=== PATIENT | female | born 1965 | race Caucasian/White ===

== ENCOUNTER 2021-12-02 08:45 | Inpatient (IN) ==
[2021-12-02] MEDS ORDERED: Iopamidol - 370 500 ML MLS IVP ONE ×2 (09:01→09:12)
[2021-12-02 09:24] LABS: Basophils % 0.2 %; Red Blood Count 3.41 M/mcL (3.82-4.97)
[2021-12-02 09:26] LABS: Basophils # 0.1 K/mcL (0.0-0.2); Hematocrit 22.5 % (35.3-44.9); Hemoglobin 6.6 g/dL (11.5-15.4); Immature Granulocytes % 0.5 % (0-4); Lymphocytes # 0.8 K/mcL (0.6-4.6); Lymphocytes % 3.2 %; Mean Corpuscular HGB Conc 29.3 g/dL (31.6-35.5); Mean Corpuscular Hemoglobin 19.4 pg (28.0-33.3); Mean Platelet Volume 7.9 fL (9.4-12.4); Monocytes # 1.5 K/mcL (0.0-1.3); Platelet Count 844 K/mcL (140-400); Red Cell Distribution Width 19.5 % (11.5-14.5); Segmented Neutrophils % 90.1 %; White Blood Count 25.7 K/mcL (4.3-11.1)
[2021-12-02 09:31] LABS: Neutrophils # 23.2 K/mcL (1.6-8.9)
[2021-12-02 09:43] LABS: Alanine Aminotransferase 21 Units/L (7-52); Alkaline Phosphatase 90 Units/L (34-104); Aspartate Amino Transferase 56 Units/L (13-39); BUN/Creatinine Ratio 13 (6-26); Bilirubin,Total 0.3 mg/dL (0.3-1.0); Blood Urea Nitrogen 8 mg/dL (6-20); Calcium 8.5 mg/dL (8.6-10.3); Carbon Dioxide 22 mEq/L (23-29); Chloride 96 mEq/L (98-107); Glucose 140 mg/dL (70-105); Osmolality,Calculated 267 (280-300); Potassium 3.5 mEq/L (3.5-5.1); Sodium 128 mEq/L (136-145); eGFR For African Americans > 60 (> 60); eGFR For Non-African Americans > 60 (> 60)
[2021-12-02 09:52] LABS: Activated Partial Thrombo Time 28.3 Seconds (26.0-36.0); INR 1.3; Prothrombin Time 14.2 Seconds (9.4-12.1)
[2021-12-02 10:51] LABS: C-Reactive Protein 129 mg/L (Less than 10)
[2021-12-02] MEDS ORDERED: cefTRIAXone 1,000 MG in 0.9 % Sodium Chloride 10 ML IVP ONE (10:56)
[2021-12-02 10:59] LABS: Anisocytosis 1+ (Not Present); Hypochromasia Present (Not Present); Platelet Estimate Increased (Normal)
[2021-12-02] MEDS ORDERED: 0.9 % Sodium Chloride 250 ML ONE (11:17)
[2021-12-02] MEDS ORDERED: 0.9 % Sodium Chloride 1,000 ML IV ONE (11:54)
[2021-12-02 15:23] LABS: Bacteria,Urine Few per hpf (None-Few); Bilirubin,Urine Negative (Negative); Blood,Urine Negative (Negative); Clarity,Urine Clear (Clear); Color,Urine Colorless (Yellow); Glucose,Urine (UA) Normal (Normal); Ketones,Urine Negative (Negative); Leukocyte Esterase,Urine Trace (Negative); Mucus,Urine Few per lpf (None-Few); Nitrite,Urine Positive (Negative); PH,Urine 6.5 pH Units (5.0-8.0); Protein,Urine Negative (Neg-Trace); RBC,Urine 0-3 per hpf (0-3); Specific Gravity,Urine > 1.030 (1.010-1.025); Squamous Epithelial Cell,Urine Few per hpf (None-Few); Urobilinogen,Urine Normal (Normal)
[2021-12-02] MEDS ORDERED: Ondansetron 4 MG/2 ML VIAL IVP PRN (16:18)
[2021-12-02] MEDS ORDERED: Naloxone 0.4 MG/ML INJ IVP PRN (16:18)
[2021-12-02] MEDS ORDERED: Ipratropium/Albuterol Neb 3 ML IH PRN (16:42)
[2021-12-02] MEDS: 0.9 % Sodium Chloride 1,000 ML IVC SCH (17:51)
[2021-12-02] MEDS: Piperacillin/Tazobactam 3.375 GM in 0.9 % Sodium Chloride Mini Bag 100 ML IVPB SCH (17:51)
[2021-12-02 21:23] LABS: Hematocrit 23.8 % (35.3-44.9); Hemoglobin 7.4 g/dL (11.5-15.4)
[2021-12-03] MEDS: Piperacillin/Tazobactam 3.375 GM in 0.9 % Sodium Chloride Mini Bag 100 ML IVPB SCH ×3 (01:18→17:18)
[2021-12-03 03:16] LABS: Alanine Aminotransferase 15 Units/L (7-52); Albumin 2.5 g/dL (3.5-5.7); Albumin/Globulin Ratio 0.9 (1.1-2.2); Alkaline Phosphatase 75 Units/L (34-104); Aspartate Amino Transferase 47 Units/L (13-39); BUN/Creatinine Ratio 19 (6-26); Bilirubin,Total 0.4 mg/dL (0.3-1.0); Blood Urea Nitrogen 14 mg/dL (6-20); Carbon Dioxide 20 mEq/L (23-29); Chloride 104 mEq/L (98-107); Globulin 2.7 g/dL (2.4-3.5); Glucose 96 mg/dL (70-105); Magnesium 1.8 mg/dL (1.6-2.6); Osmolality,Calculated 276 (280-300); Phosphorous 3.6 mg/dL (2.7-4.5); Potassium 3.8 mEq/L (3.5-5.1); Sodium 133 mEq/L (136-145); Total Protein 5.2 g/dL (6.4-8.9); eGFR For African Americans > 60 (> 60); eGFR For Non-African Americans > 60 (> 60)
[2021-12-03 03:18] LABS: Basophils % 0.2 %; Eosinophils % 0.2 %; Hematocrit 24.6 % (35.3-44.9); Hemoglobin 7.4 g/dL (11.5-15.4); Immature Granulocytes % 0.5 % (0-4); Lymphocytes # 0.9 K/mcL (0.6-4.6); Lymphocytes % 5.2 %; Mean Corpuscular HGB Conc 30.1 g/dL (31.6-35.5); Mean Corpuscular Hemoglobin 21.1 pg (28.0-33.3); Mean Corpuscular Volume 70.3 fL (83.0-100.0); Mean Platelet Volume 7.9 fL (9.4-12.4); Monocytes # 1.1 K/mcL (0.0-1.3); Monocytes % 6.4 %; Neutrophils # 14.6 K/mcL (1.6-8.9); Platelet Count 674 K/mcL (140-400); Segmented Neutrophils % 87.5 %; White Blood Count 16.7 K/mcL (4.3-11.1)
[2021-12-03 03:37] LABS: Ferritin 116 ng/mL (10-120); Iron < 10 mcg/dL (50-170); Thyroid Stimulating Hormone 1.784 mcIU/mL (0.340-5.600); Transferrin 153 mg/dL (203-362)
[2021-12-03 03:40] LABS: Folate 12.4 ng/mL (3.0-16.0)
[2021-12-03] MEDS: 0.9 % Sodium Chloride 1,000 ML IVC SCH ×3 (04:07→21:10)
[2021-12-03] MEDS ORDERED: Iron Sucrose Complex 400 MG in 0.9 % Sodium Chloride 250 ML IVPB ONE (08:00)
[2021-12-03] MEDS ORDERED: Aspirin 81 MG TAB.CHEW PO SCH (15:00)
[2021-12-03] MEDS: Cyanocobalamin (B-12) 1,000 MCG TABLET PO SCH (15:34)
[2021-12-03] MEDS: *HR* HYDROcodone/Acet 5/325 mg TABLET PO PRN (21:09)
[2021-12-03] MEDS: *HR* Rivaroxaban 15 MG TABLET PO SCH (21:10)
[2021-12-04] MEDS: Piperacillin/Tazobactam 3.375 GM in 0.9 % Sodium Chloride Mini Bag 100 ML IVPB SCH ×2 (00:46→09:31)
[2021-12-04 00:54] VITALS: O2SAT 99
[2021-12-04] MEDS: *HR* HYDROcodone/Acet 5/325 mg TABLET PO PRN (03:41)
[2021-12-04 05:58] VITALS: TEMP 97.9
[2021-12-04 07:16] LABS: Basophils # 0.1 K/mcL (0.0-0.2); Basophils % 0.3 %; Eosinophils % 0.2 %; Hematocrit 24.5 % (35.3-44.9); Hemoglobin 7.3 g/dL (11.5-15.4); Immature Granulocytes % 0.6 % (0-4); Mean Corpuscular HGB Conc 29.8 g/dL (31.6-35.5); Mean Corpuscular Hemoglobin 20.7 pg (28.0-33.3); Mean Corpuscular Volume 69.6 fL (83.0-100.0); Monocytes # 1.1 K/mcL (0.0-1.3); Monocytes % 6.4 %; Neutrophils # 14.9 K/mcL (1.6-8.9); Platelet Count 702 K/mcL (140-400); Red Blood Count 3.52 M/mcL (3.82-4.97); Red Cell Distribution Width 21.6 % (11.5-14.5); Segmented Neutrophils % 86.5 %; White Blood Count 17.2 K/mcL (4.3-11.1)
[2021-12-04 07:28] LABS: BUN/Creatinine Ratio 26 (6-26); Blood Urea Nitrogen 12 mg/dL (6-20); Calcium 7.6 mg/dL (8.6-10.3); Carbon Dioxide 19 mEq/L (23-29); Chloride 102 mEq/L (98-107); Glucose 78 mg/dL (70-105); Osmolality,Calculated 267 (280-300); Potassium 3.8 mEq/L (3.5-5.1); Sodium 129 mEq/L (136-145); eGFR For African Americans > 60 (> 60); eGFR For Non-African Americans > 60 (> 60)
[2021-12-04 07:42] LABS: Anisocytosis 1+ (Not Present); Hypochromasia Present (Not Present); Microcytosis Present (Not Present); Platelet Estimate Increased (Normal); Poikilocytosis 1+ (Not Present)
[2021-12-04 08:05] VITALS: BP 102/62; PULSE 70
[2021-12-04] MEDS: 0.9 % Sodium Chloride 1,000 ML IVC SCH (09:31)
[2021-12-04] MEDS: *HR* Rivaroxaban 15 MG TABLET PO SCH (09:34)
[2021-12-04] MEDS: Cyanocobalamin (B-12) 1,000 MCG TABLET PO SCH (09:34)
== END 2021-12-04 12:44 | disposition home or self-care (01) | DRG 720 ==
LOC: 2ANU 08:45 → EMEROOARM 08:45 → SUATTDRO 16:36 → 2ANU 17:11
PROVIDERS: ADMIT General Practice; ATTEND Family Medicine